=== PATIENT | female | born 1995 | race Caucasian/White ===

== ENCOUNTER 2019-12-02 22:36 | Day surgery (SDC) | payer OTHER ==
[2019-12-02 23:17] VITALS: BMI 31.3
[2019-12-02] MEDS ORDERED: hydrALAZINE 20 MG/ML VIAL SLOW IVP PRN (23:24)
[2019-12-02] MEDS ORDERED: Acetaminophen 325 MG TAB PO PRN (23:29)
--- NOTE | 2019-12-02 23:39 | PDOC.FPROB ---
FMR OB H&P: HPI - History of Present Illness Chief Complaint: Headache, elevated BP Indentification: 24 yo @ 37.4 History of Present Illness: 24 yo @ 37.4 by US presents for elevated BP reading at home in addition to new onset headache and worsening LE edema. Pt reports history of migraines; however, describes headache as "different" than prior migraines. Took tylenol earlier without relief of symptoms. Pt also reports worsening LE edema over the last 2 weeks. Pos fm, no vag bleeding/discharge, no LOF. Primary Care Physician: Delmy FMR OB H&P: Current - Care : 1 Para: 0 Gestational age: 37.4 Due date: 12/19/2019 Total weight gain: 50 LBS - OB Labs Blood type: A RH: positive Antibody Screen: negative HIV: negative RPR: negative HepBsAg: negative Rubella: immune Quad screen: negative Urine drug screen: negative Gonorrhea: negative Chlamydia: negative Pap Smear: 2018 NILM 1 hour gtt: 87 FMR OB H&P: History - Past Medical History PMH: Migraines - OB History OB History: G1, no related complications - MEDICAL LIBRARIAN History MEDICAL LIBRARIAN History: Denies - Surgical History Sx History: Tonsillectomy - Social History Social History: Denies alcohol tobacco and drug use - Family History Family History: Denies FMR OB H&P: Medications - Current Home Medications: Medication Instructions Recorded Confirmed Type Vitamin 1 tablet PO DAILY 12/02/19 12/02/19 History Allergies/Adverse Reactions: Allergies Allergy/AdvReac Type Severity Reaction Status Date / Time No Known Allergies Allergy Verified 12/02/19 23:13 FMR OB H&P: ROS - Review of Systems General: denies: fever/chills Eyes: denies: vision changes, double vision, scotomas ENT: denies: nasal congestion Cardiovascular: reports: edema. denies: chest pain Respiratory: denies: shortness of breath Gastrointestinal: denies: abdominal pain, cramping, nausea, vomiting Genitourinary (Female): denies: dysuria, vaginal discharge, vaginal pain, vaginal bleeding, contractions Musculoskeletal: denies: pain Neurologic: reports: headache. denies: numbness, weakness FMR OB H&P: Vital Signs - Maternal Vital signs: 135/82 BP - Heart Tones Baseline: 150 Variability: moderate Acceleration: present Deceleration: absent Category: category 1 [place] contractions every: Absent FMR OB H&P: Physical Exam - Physical Exam General: NAD, awake, alert and oriented HEENT: normocephalic and atraumatic, PERRLA, EOMI, MMM, conjunctiva clear Neck: trachea midline Heart: RRR, normal S1/S2, pulses present Deviation from normal: 2+ Pitting edema to rollins General: CTAB, no respiratory distress, good air movement, no rales/rhonchi, no wheezing, no retractions Abdomen: soft, gravid, non-tender, bowel sound present Neurological: DTR +3, no clonus, no tremor, no focal deficit Skin: no rash Lymphatic: no unusual bruising or bleeding Psychiatric: normal mood and affect - Pelvic Exam Estimated Weight: 7 lbs FMR OB H&P: A/P - Problem List (1) Elevated blood pressure affecting in third trimester, antepartum Status: Acute Code(s): O16.3 - UNSPECIFIED MATERNAL HYPERTENSION, THIRD TRIMESTER (2) Headache Status: Acute Code(s): R51 - HEADACHE (3) Edema Status: Acute Code(s): R60.9 - EDEMA, UNSPECIFIED Disposition: 24 yo G1 @ 37.4 who presents with worsening LE edema and new onset headache with elevated BP reading at home to 159 systolic. 1) Elevated BP affecting - will check CBC and cmp in addition to urine prtein/creatanine and monitor BP - trend BPs - cont efm Discussion: Date/Time: 12/02/19 9388 This H&P was discussed with Dr. Hernandez who agrees with the above documentation and plan. Addendum - Attending - Attending Attestation Date/Time: 12/03/19 [id number] I personally evaluated the patient and discussed the management with Dr. Rooney. I agree with the History, Examination, Assessment and Plan documented above.
[2019-12-02 23:47] LABS: #Eosinphils 0.2 thou/uL (0.0-0.7); #Monocytes 1.1 thou/uL (0.11-0.59); #Neutrophils 8.5 thou/uL (1.40-6.50); %Basophils 0.3 % (0.0-1.0); %Eosinophils 1.8 % (0.0-10.0); %Monocytes 8.7 % (0.0-10.0); %Neutrophils 66.2 % (42.0-75.0); Hemoglobin 10.9 g/dL (12.0-16.0); Mean Corpuscular HGB CONC 33.8 g/dL (32.0-36.0); Mean Corpuscular Hemoglobin 29.2 pg (27.0-31.0); Mean Corpuscular Volume 86.4 fL (78.0-98.0); Platelet Count 262 thou/uL (130-400); RBC Distribution Width 11.7 % (11.5-14.5); Red Blood Cell (RBC) Count 3.74 mill/uL (4.20-5.40); White Blood Cell (WBC) Count 12.9 thou/uL (4.8-10.8)
[2019-12-03] LABS: Creatinine, Urine 68.82 mg/dL (47-110); Protein, Urine Random Quant Less than 10 mg/dL (1-14)
[2019-12-03] LABS: ALT (SGPT) 12 U/L (8-55); AST (SGOT) 16 U/L (5-34); Albumin 3.2 g/dL (3.5-5.0); Alkaline Phosphatase 119 U/L (40-110); Anion Gap 12 mmol/L (10-20); BUN (Urea Nitrogen) 7 mg/dL (7.0-18.7); Bilirubin, Total 0.4 mg/dL (0.2-1.2); Calc. Creatinine Clearance 200 mL/min (70-130); Calcium 8.5 mg/dL (7.8-10.44); Carbon Dioxide 20 mmol/L (22-29); Chloride 109 mmol/L (98-107); Estimated GFR-MDRD Greater than 90; Globulin 2.8 g/dL (2.4-3.5); Glucose 85 mg/dL (70-105); Potassium 3.7 mmol/L (3.5-5.1); Sodium 137 mmol/L (136-145)
--- NOTE | 2019-12-03 00:12 | PDOC.BPN ---
- Brief Progress Note BPs all normal at hospital. Labs WNL and no proteinuria. Will dc to home with instruction to f/u with pcp next week. Return precautions provided.
== END 2019-12-03 00:32 | disposition home or self-care (01) ==
LOC: L&D/OP 22:36
PROVIDERS: ATTEND Student in an Organized Health Care Education/Training Program
DX: O99.89 Other specified diseases and conditions complicating pregnancy, childbirth and the puerperium (principal); R03.0 Elevated blood-pressure reading, without diagnosis of hypertension; R51 Headache; R60.9 Edema, unspecified; Z3A.37 37 weeks gestation of pregnancy
CPT/HCPCS: 36415; 80053; 82570; 84156; 85025; 99283

== ENCOUNTER 2019-12-11 07:33 | Inpatient (IN) | payer OTHER ==
[2019-12-11] MEDS ORDERED: Bupivacaine 0.25% HCL 30 ML VIAL ONE (10:34)
[2019-12-11 20:17] VITALS: BMI 30.4
[2019-12-11] MEDS ORDERED: Carboprost 250 MCG/ML AMP IM PRN (20:34)
[2019-12-11] MEDS ORDERED: Ibuprofen 800 MG TAB PO PRN (20:34)
[2019-12-11] MEDS ORDERED: Butorphanol Tartrate 1 MG/ML VIAL SLOW IVP PRN (20:34)
[2019-12-11] MEDS ORDERED: Acetaminophen 500 MG TAB PO PRN (20:34)
[2019-12-11] MEDS ORDERED: Ondansetron PF 4 MG/2 ML Vial IVP PRN (20:34)
[2019-12-11] MEDS ORDERED: hydrALAZINE 20 MG/ML VIAL SLOW IVP PRN (20:34)
[2019-12-11] MEDS ORDERED: NS / Oxytocin 40 units/1000ml 1,000 ML IV PRN (20:34)
[2019-12-11] MEDS ORDERED: Lidocaine 1% (PF) 30 ML VIAL SC PRN (20:34)
[2019-12-11] MEDS ORDERED: Methylergonovine 0.2 MG/ML VIAL IM PRN (20:34)
[2019-12-11] MEDS ORDERED: HYDROcodone/Acetaminophen 5/325 mg Tablet PO PRN (20:34)
[2019-12-11] MEDS ORDERED: Misoprostol 200 MCG TAB PR PRN (20:34)
[2019-12-11] MEDS ORDERED: Promethazine HCl 25 MG/ML VIAL IM PRN (20:34)
[2019-12-11] MEDS ORDERED: Diphenoxylate HCl/Atropine Tablet PO PRN (20:34)
[2019-12-11] MEDS ORDERED: NS w/ Oxytocin 10 units 500 ML IV SCH (20:45)
[2019-12-11 20:53] LABS: Hemoglobin 11.3 g/dL (12.0-16.0); Mean Corpuscular Hemoglobin 28.5 pg (27.0-31.0); Mean Corpuscular Volume 86.5 fL (78.0-98.0); Mean Platelet Volume 8.6 fL (7.4-10.4); Platelet Count 227 thou/uL (130-400); RBC Distribution Width 12.2 % (11.5-14.5); Red Blood Cell (RBC) Count 3.96 mill/uL (4.20-5.40); White Blood Cell (WBC) Count 11.2 thou/uL (4.8-10.8)
[2019-12-11] MEDS: Misoprostol 100 MCG TAB VAG SCH (21:00)
[2019-12-11] MEDS: Lactated Ringer's 1,000 ML IV SCH (21:00)
[2019-12-11 21:17] LABS: ALT (SGPT) 18 U/L (8-55); AST (SGOT) 19 U/L (5-34); Albumin 3.1 g/dL (3.5-5.0); Alkaline Phosphatase 133 U/L (40-110); Anion Gap 14 mmol/L (10-20); BUN (Urea Nitrogen) 6 mg/dL (7.0-18.7); Bilirubin, Total 0.3 mg/dL (0.2-1.2); Calc. Creatinine Clearance 194 mL/min (70-130); Calcium 8.2 mg/dL (7.8-10.44); Carbon Dioxide 19 mmol/L (22-29); Chloride 108 mmol/L (98-107); Estimated GFR-MDRD Greater than 90; Globulin 2.5 g/dL (2.4-3.5); Glucose 104 mg/dL (70-105); Protein, Total 5.6 g/dL (6.0-8.3); Sodium 137 mmol/L (136-145)
[2019-12-11 21:27] LABS: Syphilis Antibody Nonreactive (Nonreactive); Syphilis Antibody Index 0.04 S/CO (<1.00 Non-Reactive)
[2019-12-12 01:04] LABS: HBSAg Index 0.29 S/CO (0-0.99); Hep B Surf Ag Non-Reactive S/CO (NonReactive)
[2019-12-12] MEDS: Misoprostol 100 MCG TAB VAG SCH ×4 (01:20→23:10)
--- NOTE | 2019-12-12 08:23 | PDOC.LDHP ---
Labor and Delivery H&P Chief complaint: scheduled induction HPI: 24yo at 39w0d by LMP here for IOL due to GHTN. No PIH sx. s/p cytotec x 3 overnight Current gestational age (weeks): 39 Due date: 12/19/19 Dating criteria: last menstrual period Grav: 1 Para: 0 Current complications: gestational hypertension Abnormal US findings: No Past Medical History: denies Current medications: pre-celine vitamins Previous surgical history: none Allergies/Adverse Reactions: Allergies Allergy/AdvReac Type Severity Reaction Status Date / Time No Known Allergies Allergy Verified 12/02/19 23:13 Social history: none - Physical Exam Vital signs reviewed and normal: yes Abnormal vital signs: few mild range bp overnight General: NAD Heart: RRR Lungs: CTAB Abdomen: gravid Extremeties: no edema FHT: category 1 [place] contractions every: 1-2 - Vaginal Exam cm dilated: 2 Effacement: 75% Station: -2 (arom clear) - OB Labs Blood type: A RH: positive Antibody Screen: negative HIV: negative RPR: negative HEPSAg: negative 1 hour GCT: negative GBS: negative Urine drug screen: negative Rubella: immune - Assessment L&D Assessment: medically indicated induction - Plan Plan: admit to L&D, cervical ripening, labor augmentation if indicated, informed consent obtained, anesthesia consult for pain management
[2019-12-12] MEDS ORDERED: Fentanyl 4 mcg/Bup 0.1% Cadd 100 ML ONE ×2 (08:48→15:43)
[2019-12-12] MEDS: Lactated Ringer's 1,000 ML IV SCH ×2 (09:42→20:02)
[2019-12-12] MEDS ORDERED: ePHEDrine/0.9% NaCl/PF SYRINGE 50 mg/10 ml SLOW IVP PRN (09:59)
[2019-12-12] MEDS ORDERED: Naloxone HCl 0.4 mg/ml Vial IVP PRN ×2 (09:59)
[2019-12-12] MEDS ORDERED: Acetaminophen 325 MG TAB PO PRN (09:59)
[2019-12-12] MEDS ORDERED: Promethazine HCl 25 MG/ML VIAL IM PRN ×2 (09:59→21:27)
[2019-12-12] MEDS ORDERED: Ondansetron PF 4 MG/2 ML Vial IVP PRN ×2 (09:59→21:27)
[2019-12-12] MEDS ORDERED: Lactated Ringer's 500 ML IV PRN (09:59)
[2019-12-12] MEDS ORDERED: diphenhydrAMINE 50 MG/ML VIAL IVP PRN (09:59)
[2019-12-12] MEDS ORDERED: Communication Order-Pharmacy FS SCH (10:00)
[2019-12-12] MEDS ORDERED: Fentanyl 4 mcg/Bupivacaine 0.1% Cassette 100 ML EPIDURAL SCH (10:00)
--- NOTE | 2019-12-12 14:00 | PDOC.LDPN ---
Labor & Delivery Progress Note - Subjective Subjective: comfortable - Objective Vital signs reviewed and normal: yes General: NAD Uterine fundus: non tender Dilation: 5 Effacement: 75% Station: -2 FHT: category 1 [place] contractions every: 2min Plan: continue plan of care, labor augmentation
[2019-12-12] MEDS ORDERED: Methylergonovine 0.2 MG/ML VIAL ONE (18:55)
[2019-12-12 19:05] LABS: Actual Bicarbonate (HCO3v) 19 mEq/L (22-28); Base Excess -6.1 mEq/L (-2.0 to +3.0); pH (Cord, venous) 7.33 (7.32-7.43)
[2019-12-12 19:07] LABS: Actual Bicarbonate (HCO3a) 21.5 mEq/L (22-28); Base Excess (BEa) -8.1 mEq/L (-2.0 to +3.0)
--- NOTE | 2019-12-12 19:16 | PDOC.OPDEL ---
OB Operative/Delivery Note Delivery Dr/Surgeon: Delmy Assist: n/a Pre-Delivery Diagnosis: medically indicated induction (GHTN) Procedure/Post Delivery Dx: spontaneous vaginal delivery (, shoulder dystocia) - Additional Findings/Plan Placenta delivered: spontaneous Repaired Obstetrical Laceration: right labial (and right sidewall repaired with 2-0 vicryl in running fashion) Estimated blood loss: 1000cc Compilations/Other Findings: shoulder dystocia: turtle sign noted, anterior shoulder left, shoulder did not deliver with gentle traction, [facility] and suprapubic performed, additional nursing called for, Rubins maneuvers unsuccessful, when nursing arrived more effective Danay and suprapubic applied and anterior shoulder delivered with gentle traction. Total time on perineum 1min. Martir present PPH bleeding from uterine atony, uterus firm with bimanual massage, pitocin and methergine x 1. Also bleeding from right sidewall laceration present, hemostasis excellent after repair. Post delivery plan: routine recovery
[2019-12-12] MEDS ORDERED: Lanolin Ointment 7 GM TUBE TOP PRN (21:27)
[2019-12-12] MEDS ORDERED: Preparation H Ointment 28 GM TUBE PR PRN (21:27)
[2019-12-12] MEDS ORDERED: hydrALAZINE 20 MG/ML VIAL SLOW IVP PRN (21:27)
[2019-12-12] MEDS ORDERED: Benzocaine-Menthol 82.5 ML CAN TOP PRN (21:27)
[2019-12-12] MEDS ORDERED: HYDROcodone/Acetaminophen 5/325 mg Tablet PO PRN (21:27)
[2019-12-12] MEDS ORDERED: NS / Oxytocin 40 units/1000ml 1,000 ML IV SCH (21:27)
[2019-12-12] MEDS ORDERED: diphenhydrAMINE 25 MG CAP PO PRN (21:27)
[2019-12-12] MEDS ORDERED: Bisacodyl 10 MG SUPP PR PRN (21:27)
[2019-12-12] MEDS ORDERED: Milk Of Magnesia 30 ML UDCUP PO PRN (21:27)
[2019-12-12] MEDS: HYDROcodone/Acetaminophen 5/325 mg Tablet PO PRN (21:44)
[2019-12-12] MEDS ORDERED: Docusate Calcium (SURFAK) 240 MG CAP PO SCH (21:45)
[2019-12-12] MEDS: Ibuprofen 800 MG TAB PO SCH (23:14)
[2019-12-13] MEDS: Lactated Ringer's 1,000 ML IV SCH ×2 (02:01→22:30)
[2019-12-13] MEDS: Ibuprofen 800 MG TAB PO SCH ×3 (05:18→23:30)
[2019-12-13 06:29] LABS: Hemoglobin 8.5 g/dL (12.0-16.0)
--- NOTE | 2019-12-13 08:04 | PDOC.PP ---
Post Progress Note Post Day #: 1 PO intake tolerated: yes Flatus: yes Ambulation: yes Vital Signs (12 hours) Temp Pulse Resp BP Pulse Ox 12/13/19 05:14 97.6 F 81 16 117/67 96 12/13/19 00:51 98.6 F 94 16 135/81 96 12/12/19 22:51 98.7 F 101 H 14 135/74 96 12/12/19 21:57 98.1 F 97 14 133/74 97 Weight Weight 200 lb - Physical Examination General: NAD Respiratory: non-labored breathing Abdominal: no distention, appropriately TTP Fundus firm & at: umb Extremities: negative homans (B) Skin: no rash Neurological: no gross focal deficits Psychiatric: normal affect Result Diagrams: 12/13/19 06:13 12/11/19 20:42 Additional Labs: Post Labs Blood Type A POSITIVE 12/11/19 21:48 Hep Bs Antigen Non-Reactive S/CO (NonReactive) 12/11/19 20:42 - Assessment/Plan PPD1 s/p TSVD c/b shoulder dystocia VSSAF
[2019-12-13] MEDS ORDERED: Adacel (T-DAP) 0.5 ML SYRINGE IM ONE (09:00)
[2019-12-13] MEDS: Prenatal Vitamin 1 TAB PO SCH (09:23)
[2019-12-13] MEDS: Docusate Calcium (SURFAK) 240 MG CAP PO SCH ×2 (09:23→23:31)
[2019-12-13] MEDS: Ferrous Sulfate 325 MG TAB PO SCH ×2 (09:23→18:18)
[2019-12-13] MEDS: Acetaminophen 500 MG TAB PO PRN ×2 (11:22→21:28)
[2019-12-13] MEDS: HYDROcodone/Acetaminophen 5/325 mg Tablet PO PRN (18:31)
[2019-12-13] MEDS ORDERED: Sodium Chloride 0.9% 10 ML ONE ×2 (21:40→23:09)
[2019-12-13] MEDS ORDERED: CEFAZOLIN 2 GM in Premix Bag 1 BAG IVPB SCH (22:00)
[2019-12-14] MEDS: Ibuprofen 800 MG TAB PO SCH ×3 (06:05→21:22)
[2019-12-14] MEDS: Prenatal Vitamin 1 TAB PO SCH (08:36)
[2019-12-14] MEDS: Docusate Calcium (SURFAK) 240 MG CAP PO SCH ×2 (08:36→21:22)
[2019-12-14] MEDS: Ferrous Sulfate 325 MG TAB PO SCH ×2 (08:36→16:54)
--- NOTE | 2019-12-14 13:07 | PDOC.PP ---
Post Progress Note Post Day #: 2 Subjective: no fever/chills, no sx of anemia, nursing well, minimal lochia PO intake tolerated: yes Flatus: yes Ambulation: yes Vital Signs (12 hours) Temp Pulse Resp BP Pulse Ox 12/14/19 12:45 120 H 18 98 12/14/19 12:35 98.4 F 122 H 18 137/77 98 12/14/19 08:11 98.4 F 109 H 20 110/58 L 98 12/14/19 07:50 98 12/14/19 04:02 97.7 F 93 16 118/57 L 97 Weight Weight 200 lb - Physical Examination General: NAD Respiratory: non-labored breathing Abdominal: no distention Fundus firm & at: below umb Neurological: no gross focal deficits Psychiatric: A&Ox3, normal affect Result Diagrams: 12/13/19 06:13 12/11/19 20:42 Additional Labs: Post Labs Blood Type A POSITIVE 12/11/19 21:48 Hep Bs Antigen Non-Reactive S/CO (NonReactive) 12/11/19 20:42 (1) Vaginal delivery Code(s): O80 - ENCOUNTER FOR FULL-TERM UNCOMPLICATED DELIVERY Status: Acute (2) Elevated blood pressure affecting in third trimester, antepartum Code(s): O16.3 - UNSPECIFIED MATERNAL HYPERTENSION, THIRD TRIMESTER Status: Acute - Assessment/Plan PPD2 w isolated T 100.8 yesterday, pulse 109 this AM. Pt rec'd one dose of abx yesterday. We discussed observation over night due to elevated pulse, pt strongly desires DC home. We will continue to monitor closely, if elevated T or tachycardia noted will FU w CBC and plan to stay overnight for continued care.
[2019-12-14 14:30] LABS: #Eosinphils 0.1 thou/uL (0.0-0.7); #Lymphocytes 1.8 thou/uL (1.20-3.40); #Monocytes 1.5 thou/uL (0.11-0.59); #Neutrophils 14.4 thou/uL (1.40-6.50); %Basophils 0.1 % (0.0-1.0); %Eosinophils 0.7 % (0.0-10.0); %Lymphocytes 9.9 % (21.0-51.0); %Monocytes 8.2 % (0.0-10.0); %Neutrophils 81.2 % (42.0-75.0); Hemoglobin 8.3 g/dL (12.0-16.0); Mean Corpuscular HGB CONC 32.7 g/dL (32.0-36.0); Mean Corpuscular Hemoglobin 28.6 pg (27.0-31.0); Mean Corpuscular Volume 87.3 fL (78.0-98.0); Mean Platelet Volume 7.2 fL (7.4-10.4); Platelet Count 266 thou/uL (130-400); RBC Distribution Width 12.4 % (11.5-14.5); Red Blood Cell (RBC) Count 2.89 mill/uL (4.20-5.40); White Blood Cell (WBC) Count 17.7 thou/uL (4.8-10.8)
[2019-12-14] MEDS: Lactated Ringer's 1,000 ML IV SCH (23:49)
[2019-12-15] MEDS: Ibuprofen 800 MG TAB PO SCH (04:59)
[2019-12-15 07:53] VITALS: BP 118/66; TEMP 98.1
--- NOTE | 2019-12-15 08:21 | PDOC.PP ---
Post Progress Note Post Day #: 3 PO intake tolerated: yes Flatus: yes Ambulation: yes Vital Signs (12 hours) Temp Pulse Resp BP 12/15/19 07:52 98.1 F 102 H 20 118/66 12/15/19 04:55 98.0 F 97 18 129/74 12/14/19 23:35 98.8 F 91 18 141/63 H Weight Weight 200 lb - Physical Examination General: NAD Cardiovascular: RRR Respiratory: non-labored breathing Abdominal: no distention, appropriately TTP Fundus firm & at: umb-2 Extremities: negative homans (B) Skin: no rash Neurological: no gross focal deficits Psychiatric: A&Ox3, normal affect Result Diagrams: 12/14/19 14:20 12/11/19 20:42 Additional Labs: Post Labs Blood Type A POSITIVE 12/11/19 21:48 Hep Bs Antigen Non-Reactive S/CO (NonReactive) 12/11/19 20:42 - Assessment/Plan PPD3 s/p TSVD VSSAF, tachycardia resolved Tmax 100.8 now >24hr ago, never respiked and asymptomatic. Clinically no infectious process going on. Doing well pain controlled lochia appropriate Acute blood loss anemia- asx, cont iron BID on DC Rh pos RImm DC home FU 6 w, ER warnings.
[2019-12-15] MEDS: Prenatal Vitamin 1 TAB PO SCH (09:13)
[2019-12-15] MEDS: Ferrous Sulfate 325 MG TAB PO SCH (09:14)
[2019-12-15] MEDS: Docusate Calcium (SURFAK) 240 MG CAP PO SCH (09:14)
== END 2019-12-15 11:23 | disposition home or self-care (01) | DRG 806 ==
LOC: EDSTATUS 07:33 → L&D 19:26 → 3SW 12-12 21:53
PROVIDERS: ADMIT Student in an Organized Health Care Education/Training Program; ATTEND Student in an Organized Health Care Education/Training Program
PROC: 10E0XZZ Delivery of Products of Conception, External Approach (ICD-10-PCS; principal; 2019-12-12)
PROC: 10907ZC Drainage of Amniotic Fluid, Therapeutic from Products of Conception, Via Natural or Artificial Opening (ICD-10-PCS; 2019-12-12)
PROC: 3E033VJ Introduction of Other Hormone into Peripheral Vein, Percutaneous Approach (ICD-10-PCS; 2019-12-12)
PROC: 3E0P7VZ Introduction of Hormone into Female Reproductive, Via Natural or Artificial Opening (ICD-10-PCS; 2019-12-12)
PROC: 0UQMXZZ Repair Vulva, External Approach (ICD-10-PCS; 2019-12-12)
DX: O13.4 Gestational [pregnancy-induced] hypertension without significant proteinuria, complicating childbirth (principal); D62 Acute posthemorrhagic anemia; Z37.0 Single live birth; O66.0 Obstructed labor due to shoulder dystocia; O72.1 Other immediate postpartum hemorrhage; Z3A.39 39 weeks gestation of pregnancy; O70.0 First degree perineal laceration during delivery; O90.81 Anemia of the puerperium
CPT/HCPCS: 36415; 51702; 80053; 82805; 85014; 85018; 85025; 85027; 86780; 86850; 86900; 86901; 87340; J0690; J2001; J2210; J2405; J2590; S0020